=== PATIENT | female | born 1960 | race Caucasian/White ===

== ENCOUNTER 2019-05-11 05:58 | Inpatient (IN) | payer OTHER ==
[2019-04-25 10:30] VITALS: BMI 32.7
[2019-05-11] MEDS ORDERED: TRANEXAMIC ACID 1000 MG/10 ML VIAL IVPUSH ONE (06:12)
[2019-05-11] MEDS ORDERED: CEFAZOLIN 2 GM/D5W 2 GM/50 ML ML IVPB ONE (06:12)
[2019-05-11] MEDS ORDERED: BUPIVACAINE LIPOSOME/PF (EXPAREL) 266 MG/20 ML VIAL ONE (07:22)
[2019-05-11] MEDS ORDERED: SODIUM CHLORIDE 0.9% P/F 10 ML VIAL IJ ONE (07:22)
[2019-05-11] MEDS ORDERED: MIDAZOLAM HCL 2 MG/2 ML SINGLE DOSE VIAL ONE (07:22)
[2019-05-11] MEDS ORDERED: BENZOIN/ALOE VERA/STORAX/TOLU 58 ML BOTTLE ONE (07:27)
[2019-05-11] MEDS ORDERED: PROPOFOL 20 ML ONE ×3 (07:33)
[2019-05-11] MEDS ORDERED: VANCOMYCIN 1,250 MG in DEXTROSE 5%-WATER - 250 ML IVPB ONE (08:00)
--- NOTE | 2019-05-11 09:52 | PN ---
Progress Note (short form) - Note Progress Note: 59F s/p LEFT total knee replacement POD #0. -Pain control: per anaesthesia team. -DVT PPx: -Chemical: ASA 81mg PO BID x 6 weeks. -Mechanical: ZIA's, SCD's. -Incentive spirometry q15 min. -PT/OT/Rehab, OOB. -WBAT LLE. -Post-op Ancef x 3 doses. -f/u post-op TOV: 8 hours max. -f/u AM labs. -Diet as tolerated. -Care per medical hospitalist team. -Discharge planning: f/u [facility] [place] Office 7-10 days; call for appointment . -Will follow. Mehrdad Martino MD (Orthopaedic Surgery).
[2019-05-11] MEDS ORDERED: MAGNESIUM HYDROX 2400MG/30ML ORAL SUSPENSION 30 ML CUP PO PRN (09:55)
[2019-05-11] MEDS ORDERED: MAG HYDROX/AL HYDROX/SIMETH 30 ML UNIT-DOSE CUP PO PRN (09:55)
--- NOTE | 2019-05-11 09:55 | OP ---
Operative Note - Note: Operative Date: 05/11/19 Pre-Operative Diagnosis: Left knee DJD Operation: Left TKA Findings: Tricompartment DJD Tourniqet Pressure: 350mmHg Tourniquet Time: 75 minutes Implants: [place] [employer]. Femur - 2. Tibia - 2. Poly - 9mm, PS. Patella - 27mm, symmetric Post-Operative Diagnosis: Same as Pre-op Surgeon: Mehrdad Martion Roustabout Pusher: Manjeet Martino Anesthesiologist/DOCUMENT IMPROVEMENT SPECIALIST: [place] Anesthesia: Spinal Specimens Removed: Bone, soft tissue Estimated Blood Loss (mls): 0 Fluid Volume Replaced (mls): 1,300 (Crystalloid) Operative Report Dictated: Yes
[2019-05-11] MEDS ORDERED: ASPIRIN 325 MG TABLET PO SCH (10:00)
[2019-05-11] MEDS ORDERED: LACTATED RINGERS SOLUTION 1,000 ML IV SCH (10:00)
[2019-05-11] MEDS ORDERED: oxyCODONE HCL 5 MG TABLET PO PRN (10:54)
[2019-05-11] MEDS ORDERED: ONDANSETRON 4 MG/2 ML VIAL IVPUSH PRN (10:54)
[2019-05-11] MEDS ORDERED: PROMETHAZINE HCL 25 MG/1 ML VIAL IVPUSH PRN (10:54)
[2019-05-11] MEDS ORDERED: ACETAMINOPHEN 325 MG TABLET (FP) PO SCH (11:00)
[2019-05-11] MEDS ORDERED: ACETAMINOPHEN 325 MG TABLET (FP) ONE (11:24)
--- NOTE | 2019-05-11 11:52 | HP ---
Documentation entered by Gertrude Dudley SCRIBE, acting as scribe for Neda Riddle NP. CHIEF COMPLAINT: Left knee pain HISTORY OF PRESENT ILLNESS: 59 year-old female with a PMH significant for HTN, Type II NIDDM, and left knee DJD s/p left total knee arthroplasty today with Dr. Mehrdad Martino. Recent Travel: No PAST MEDICAL HISTORY: Hypertension Type II NIDDM Osteoarthritis Benign breast disease Reinopathy Eczema PAST SURGICAL HISTORY: x 1 Right knee arthroscopy Bilateral bunionectomy Social History: Smoking: never Alcohol: social Drugs: no Allergies tramadol Adverse Reaction (Severe, Verified 05/11/19 06:29) Vomiting HOME MEDICATIONS: Home Medications Medication Instructions Recorded Ascorbic Acid [Vitamin C] 2,000 mg PO DAILY 04/25/19 Cholecalciferol (Vitamin D3) 2,000 unit PO DAILY 04/25/19 [Vitamin D3] Hydrocodone/Ibuprofen 1 each PO DAILY 04/25/19 [Hydrocodone-Ibuprofen 7.5-200] Ibuprofen 600 mg PO PRN PRN 04/25/19 Lidocaine 5% Patch [Lidoderm Patch 1 patch TP HS 04/25/19 -] Metformin HCl [Glucophage] 500 mg PO DAILY 04/25/19 Valsartan/Hydrochlorothiazide 1 each PO DAILY 04/25/19 [Valsartan-Hctz 80-12.5 mg Tab] Acetaminophen [Tylenol] 650 mg PO ASDIR 05/11/19 REVIEW OF SYSTEMS CONSTITUTIONAL: Absent: fever, chills, diaphoresis, generalized weakness, malaise, loss of appetite, weight change HEENT: Absent: rhinorrhea, nasal congestion, throat pain, throat swelling, difficulty swallowing, mouth swelling, ear pain, eye pain, visual changes CARDIOVASCULAR: Absent: chest pain, syncope, palpitations, irregular heart rate, lightheadedness , peripheral edema RESPIRATORY: Absent: cough, shortness of breath, dyspnea with exertion, orthopnea, wheezing, stridor, hemoptysis GASTROINTESTINAL: Absent: abdominal pain, abdominal distension, nausea, vomiting, diarrhea, constipation, melena, hematochezia GENITOURINARY: Absent: dysuria, frequency, urgency, hesitancy, hematuria, flank pain, genital pain MUSCULOSKELETAL: +left knee pain Absent: myalgia, arthralgia, joint swelling, back pain, neck pain SKIN: Absent: rash, itching, pallor HEMATOLOGIC/IMMUNOLOGIC: Absent: easy bleeding, easy bruising, lymphadenopathy, frequent infections ENDOCRINE: Absent: unexplained weight gain, unexplained weight loss, heat intolerance, cold intolerance NEUROLOGIC: Absent: headache, focal weakness or paresthesias, dizziness, unsteady gait, seizure, mental status changes, bladder or bowel incontinence PSYCHIATRIC: Absent: anxiety, depression, suicidal or homicidal ideation, hallucinations. PHYSICAL EXAMINATION Vital Signs - 24 hr 05/11/19 06:33 Temperature 98.6 F Pulse Rate 88 Respiratory 18 Rate Blood Pressure 146/90 GENERAL: Awake, alert, and fully oriented, in no acute distress. HEAD: Normal with no signs of trauma. EYES: Pupils equal, round and reactive to light, extraocular movements intact, sclera anicteric, conjunctiva clear. LUNGS: Breath sounds equal, clear to auscultation bilaterally. No wheezes, and no crackles. No accessory muscle use. HEART: Regular rate and rhythm, normal S1 and S2 ABDOMEN: Soft, nontender, not distended MUSCULOSKELETAL: Normal range of motion at all joints. No bony deformities or tenderness. No CVA tenderness. UPPER EXTREMITIES: 2+ pulses, warm, well-perfused. No cyanosis. No clubbing. No peripheral edema. LOWER EXTREMITIES: 2+ pulses, warm, well-perfused. No calf tenderness. Surgical dressing c/d/i. Ice leeanne. Hemovac drain. NEUROLOGICAL: Cranial nerves II-XII intact. Normal speech. Laboratory Results - last 24 hr 05/11/19 06:48 POC Glucometer 129 Pre op Hgb 12.6 BUN 21 Cr 0.78 Intra op Cefazolin 3g Vanc 1g EBL 10cc LR 1600cc ASSESSMENT/PLAN: 59 year-old female with a PMH significant for HTN, Type II NIDDM, and left knee DJD s/p left total knee arthroplasty today with Dr. Mehrdad Martino. Left total knee arthroplasty --POD #0 --perioperative antibiotics per surgery --pain management per surgery --ASA 81mg BID --protonix --bowel regimen --incentive spirometry --Hemovac drain, monitor output Type II NIDDM --continue metformin --Novolog sliding scale coverage FEN Fluids: LR@125mL/hr Electrolytes: replete as indicated Nutrition: diabetic diet DVT prophylaxis: OOB, ambulation, SCDs, TEDs, ASA 81mg BID Physical therapy Dispo: continues to require inpatient care. Full code. Visit type - Emergency Visit Emergency Visit: No - New Patient This patient is new to me today: Yes Date on this admission: 05/11/19 - Critical Care Critical Care patient: No Neda Riddle NP: This documentation has been prepared by the Luis Enrique browning Maria, SCRIBE, under my direction and personally reviewed by me in its entirety. I confirm that the documentation accurately reflects all work, treatment, procedures, and medical decision making performed by me.
[2019-05-11] MEDS: oxyCODONE HCL 5 MG TABLET PO PRN ×3 (14:26→22:37)
[2019-05-11] MEDS: VALSARTAN 80 MG TABLET (UD) PO SCH (15:37)
[2019-05-11] MEDS: PANTOPRAZOLE 40 MG TABLET PO SCH (15:37)
[2019-05-11] MEDS: metFORMIN HCL 500 MG TABLET (FP) PO SCH (15:37)
[2019-05-11] MEDS: SENNOSIDES/DOCUSATE COMBO (SENNA PLUS) TABLET (UD) PO SCH ×2 (15:38→21:57)
[2019-05-11] MEDS ORDERED: HYDROmorphone HCl 2 MG/ML VIAL IVPUSH ONE (15:44)
[2019-05-11] MEDS: CEFAZOLIN 2 GM/D5W 2 GM/50 ML ML IVPB SCH ×2 (15:56→21:58)
[2019-05-11] MEDS: INSULIN SLIDING SCALE (NOVOLOG) 1 VIAL SQ SCH ×2 (17:00→22:01)
--- NOTE | 2019-05-11 17:00 | OP ---
DATE OF OPERATION: DATE OF DICTATION: 05/11/2019 SURGEON: Mehrdad Martino MD LIFELINE REPRESENTATIVES: Manjeet Martino MD, MEKA Barker PREOPERATIVE DIAGNOSIS: Tricompartmental osteoarthritis with fixed valgus deformity, left knee. POSTOPERATIVE DIAGNOSIS: Tricompartmental osteoarthritis with fixed valgus deformity, left knee. OPERATION PERFORMED: Left posterior stabilized total knee arthroplasty ([place] ). ([id number]) ANESTHESIA: Conscious sedation with spinal anesthesia and peripheral nerve block. ANTIBIOTICS GIVEN: 2 g Ancef, 1 g vancomycin preoperative; 1 g Kefzol given at the time of release of tourniquet. TOURNIQUET TIME: 80 minutes. OPERATION DETAILS: Patient correctly identified, brought in the operating room. Left lower extremity was prepped, draped in the routine manner with Betadine scrub solution, wiped off with alcohol, DuraPrep applied. The appropriate preoperative evaluation revealed a fixed valgus knee with no fixed flexion deformity. A midline incision was utilized of the routine draping and free draping of the left lower extremity. The skin was opened through the subcutaneous tissue to the quadriceps mechanism. The epimysium of the vastus medialis was dissected off the muscle. The dissection distally was from just medial proximal aspect of the tibia. Using a Bovie, the soft tissue was dissected off the bone. This was all the way around to the medial side of the knee. The patella was capsized laterally. Because of the bulkiness of the patella, we elected to resect the retropatellar surface 1st. Two sharp clamps placed in the quadriceps tendon and patella ligament. The patella was everted and the cut made from patella ligament to quadriceps tendon. The lug holes were drilled appropriately. The knee was then flexed. The limb kept in external rotation gave complete exposure of the knee with no difficulty. Severe tricompartment, particularly lateral compartment, osteoarthritis encountered. Using the [employer] instrumentation, the tibia was cut to neutral. The femur was cut to 4 degrees of valgus, and 8 mm of bone was resected off the distal aspect of the femur. The appropriate alignment jigs were utilized, and all the block cuts were made using the jig system and the appropriate chamfers made to accept a size 2 femoral component, size 3 tibial component. All appropriate lug holes and bone broaches and appropriate deep tibial drill made accordingly. This was a 13 mm extension onto the tibial component. Trialing brought the knee into full extension. With a 9-mm polyethylene liner, the flexion, extension gaps were measured and found to be 9 mm both in flexion, extension. On the table, the trialing brought about a full extension and full flexion knee. Because the tibia was inclined to sublux laterally, the popliteus was resected. No soft tissue release was necessary in terms of pie crusting of the lateral collateral ligament or release of the iliotibial band necessary. Once we were happy with the trial components, the knee was flexed and Almazan elevator placed in the space between the femur and the tibia. This brought about revealing the presence of a tight joint accordingly. The wounds were thoroughly lavaged. The cementing of the implants was performed in 1 stage, that is tibia, femur, and then patella. All extraneous cement was removed. The cement was cured appropriately with a 9-mm polyethylene spacer in situ. On the trialing, this was found to be most adequate with full extension of the knee and complete stability of the coronal sagittal plane. The sagittal plane was 90 degrees. The definitive posterior stabilized polyethylene inserted. Closure medial parapatellar incision with No. 1 Vicryl. The vastus did not require any suturing. The rest of the closure was fascia 1 Vicryl, subcutaneous 1 and 2-0 Vicryl, skin 3-0 Monocryl with Steri-Strips. The drainage, 1/8-inch Hemovac brought out laterally. Operation went extremely well. No complications. MD BRANDIE Wang/[id number] MTDD
[2019-05-11] MEDS ORDERED: INSULIN (NOVOLOG) ASPART 100 UNITS/ML 10ML VIAL ONE (17:33)
[2019-05-11] MEDS: ACETAMINOPHEN 325 MG TABLET (FP) PO SCH ×2 (17:34→23:32)
[2019-05-11] MEDS: ONDANSETRON 4 MG/2 ML VIAL IVPUSH PRN (17:35)
[2019-05-11 18:39] LABS: HEMATOCRIT 35.9 % (32.4-45.2); HEMOGLOBIN 11.5 GM/dl (10.7-15.3); MCH 26.1 pg (25.7-33.7); MEAN CELL VOLUME 81.6 fl (80-96); MEAN PLT VOLUME 10.1 fl (7.5-11.1); PLATELET COUNT 207 K/MM3 (134-434); RDW 13.8 % (11.6-15.6); WHITE BLOOD COUNT 14.9 K/mm3 (4.0-10.8)
[2019-05-11] MEDS ORDERED: ASPIRIN 81 MG CHEWABLE TABLETS PO SCH (21:22)
[2019-05-11] MEDS: ASPIRIN 81 MG CHEWABLE TABLETS PO SCH (21:58)
[2019-05-11] MEDS ORDERED: oxyCODONE HCL 10 MG SUSTAINED ACTING TABLET PO SCH (22:00)
[2019-05-12] MEDS: oxyCODONE HCL 5 MG TABLET PO PRN ×7 (01:37→22:24)
[2019-05-12] MEDS: CEFAZOLIN 2 GM/D5W 2 GM/50 ML ML IVPB SCH ×2 (04:31→09:07)
[2019-05-12] MEDS ORDERED: INSULIN (NOVOLOG) ASPART 100 UNITS/ML 10ML VIAL ONE ×2 (05:54→21:28)
[2019-05-12] MEDS: ACETAMINOPHEN 325 MG TABLET (FP) PO SCH ×3 (06:03→17:45)
[2019-05-12] MEDS: metFORMIN HCL 500 MG TABLET (FP) PO SCH (06:03)
[2019-05-12] MEDS: INSULIN SLIDING SCALE (NOVOLOG) 1 VIAL SQ SCH ×4 (06:04→21:28)
[2019-05-12] MEDS: ONDANSETRON 4 MG/2 ML VIAL IVPUSH PRN (06:04)
--- NOTE | 2019-05-12 07:39 | PN ---
Progress Note (short form) - Note Progress Note: Post op day#1.S/p LTKR under spinal anesthesia with L adductor canal and slective tibial N block uneventful.Patient stable and c/o pain score of 6-8/10 for which she is on medication.No any anesthesia related problem.Patient DC from the anesthesia care.
[2019-05-12 07:55] LABS: HEMATOCRIT 33.3 % (32.4-45.2); HEMOGLOBIN 10.9 GM/dl (10.7-15.3); MCH 26.7 pg (25.7-33.7); MCHC 32.7 g/dl (32.0-36.0); MEAN CELL VOLUME 81.7 fl (80-96); MEAN PLT VOLUME 9.7 fl (7.5-11.1); PLATELET COUNT 207 K/MM3 (134-434); RBC 4.07 M/mm3 (3.60-5.2); RDW 13.5 % (11.6-15.6); WHITE BLOOD COUNT 12.3 K/mm3 (4.0-10.8)
--- NOTE | 2019-05-12 08:00 | PN ---
Progress Note (short form) - Note Progress Note: ORTHOPAEDIC SURGERY POD #1 s/p Left TKR No acute events since surgery per RN notes. Alert. Sitting in chair at bedside with rolled towel under her heels. C/o incisional tenderness. Adequate pain control with medications ordered. Still having a slight bit of nausea but subsiding with antiemetic. Denies CP, palpitations, SOB or KRISHNA. Last Vital Signs Temp Pulse Resp BP Pulse Ox 98.2 F 96 H 18 130/78 97 05/12/19 05:00 05/12/19 05:00 05/12/19 05:00 05/12/19 05:00 05/12/19 05:00 Output 05/11/19 05/11/19 05/12/19 18:11 22:45 06:00 Hemovac 90 20 20 Gen: nad LLE: ice pack in place. Drain on self-suction (sanguinous). dressing c/d/i. SCDs bilat. Soft. NT. Motor: flexion to 90 degrees. Strength 5/5 Problem List - Problems (1) Status post total left knee replacement using cement Assessment/Plan: POD #1 Cont pain management DVT PPx: ASA 81 mg PO BID x 6 weeks; TEDs/SCDs Incentive Spirometer PT WBAT LLE Monitor/record drain output q shift f/u Labs DC planning 05/13/19 Problems reviewed: Yes Code(s): Z96.652 - PRESENCE OF LEFT ARTIFICIAL KNEE JOINT
[2019-05-12 08:02] LABS: CALCIUM 8.7 mg/dl (8.5-10); CREATININE 0.6 mg/dl (0.55-1.3); MAGNESIUM 1.6 mg/dL (1.8-2.4); POTASSIUM 3.6 mmol/L (3.5-5.1)
[2019-05-12] MEDS: PANTOPRAZOLE 40 MG TABLET PO SCH (09:08)
[2019-05-12] MEDS: VALSARTAN 80 MG TABLET (UD) PO SCH (09:08)
[2019-05-12] MEDS: SENNOSIDES/DOCUSATE COMBO (SENNA PLUS) TABLET (UD) PO SCH ×2 (09:08→21:22)
[2019-05-12] MEDS: ASPIRIN 81 MG CHEWABLE TABLETS PO SCH ×2 (09:08→21:22)
[2019-05-12] MEDS ORDERED: MAGNESIUM SULF 50% (8.12 MEQ/2 ML-1 GM VIAL) IVPB ONE (10:32)
[2019-05-12] MEDS ORDERED: MAGNESIUM SULFATE IN WATER 2 GM/50 ML IVPB IVPB ONE (11:00)
--- NOTE | 2019-05-12 11:02 | PN ---
Documentation entered by Gertrude Dudley SCRIBE, acting as scribe for Neda Riddle NP. Physical Exam: SUBJECTIVE: Patient seen and examined at bedside. Worked with PT today. OBJECTIVE: Vital Signs Period Temp Pulse Resp BP Sys/Jerome Pulse Ox Last 24 Hr 97.6 F-98.2 F 60-112 10-18 97-152/61-89 97-100 GENERAL: Awake, alert, and fully oriented, in no acute distress. HEAD: Normal with no signs of trauma. EYES: Pupils equal, round and reactive to light, extraocular movements intact, sclera anicteric, conjunctiva clear. LUNGS: Breath sounds equal, clear to auscultation bilaterally. No wheezes, and no crackles. No accessory muscle use. HEART: Regular rate and rhythm, normal S1 and S2 ABDOMEN: Soft, nontender, not distended MUSCULOSKELETAL: Normal range of motion at all joints. No bony deformities or tenderness. No CVA tenderness. UPPER EXTREMITIES: 2+ pulses, warm, well-perfused. No cyanosis. No clubbing. No peripheral edema. LOWER EXTREMITIES: 2+ pulses, warm, well-perfused. No calf tenderness. Surgical dressing c/d/i. Ice leeanne. Hemovac drain. NEUROLOGICAL: Cranial nerves II-XII intact. Normal speech. Laboratory Results - last 24 hr 05/11/19 05/11/19 05/11/19 17:04 18:15 21:59 WBC 14.9 H RBC 4.40 Hgb 11.5 Hct 35.9 MCV 81.6 MCH 26.1 MCHC 32.0 RDW 13.8 Plt Count 207 MPV 10.1 Sodium Potassium Chloride Carbon Dioxide Anion Gap BUN Creatinine Est GFR (CKD-EPI)AfAm Est GFR (CKD-EPI)NonAf POC Glucometer 178 159 Random Glucose Calcium Magnesium 05/12/19 05/12/19 05/12/19 06:01 07:05 07:05 WBC 12.3 H RBC 4.07 Hgb 10.9 Hct 33.3 MCV 81.7 MCH 26.7 MCHC 32.7 RDW 13.5 Plt Count 207 MPV 9.7 Sodium 134 L Potassium 3.6 Chloride 99 Carbon Dioxide 28 Anion Gap 7 L BUN 14.0 Creatinine 0.6 Est GFR (CKD-EPI)AfAm 114.02 Est GFR (CKD-EPI)NonAf 98.38 POC Glucometer 164 Random Glucose 151 H Calcium 8.7 Magnesium 1.6 L Active Medications Generic Name Dose Route Start Last Admin Trade Name Freq PRN Reason Stop Dose Admin Acetaminophen 650 mg 05/11/19 18:00 05/12/19 06:03 Tylenol - PO 05/14/19 17:59 650 mg Q6H KYRIE Administration Al Hydroxide/Mg Hydroxide 30 ml 05/11/19 09:55 Mylanta Oral Suspension - PO Q4H PRN DYSPEPSIA Aspirin 81 mg 05/11/19 22:00 05/11/19 21:58 Asa - PO 81 mg BID KYRIE Administration Cefazolin Sodium/Dextrose 2 gm in 50 mls @ 200 mls/hr 05/11/19 16:00 04:31 Ancef 2 Gm Premixed Ivpb - IVPB 05/12/19 15:59 200 mls/hr Q6H KYRIE Administration Insulin Aspart 1 vial 05/11/19 16:30 05/12/19 06:04 Novolog Vial Sliding Scale - SQ 2 units ACHS KYRIE Administration Protocol Magnesium Hydroxide 30 ml 05/11/19 09:55 Milk Of Magnesia - PO PRN PRN CONSTIPATION Metformin HCl 500 mg 05/11/19 10:15 05/12/19 06:03 Glucophage - PO 500 mg DAILY@0700 KYRIE Administration Ondansetron HCl 4 mg 05/11/19 09:55 05/12/19 06:04 Zofran Injection IVPUSH 4 mg Q6H PRN Administration NAUSEA Oxycodone HCl 5 mg 05/11/19 10:54 Roxicodone - PO Q3H PRN PAIN LEVEL 1-5 Oxycodone HCl 10 mg 05/11/19 10:54 05/12/19 07:52 Roxicodone - PO 10 mg Q3H PRN Administration PAIN LEVEL 6-10 Pantoprazole Sodium 40 mg 05/11/19 10:00 05/11/19 15:37 Protonix - PO Not Given DAILY [facility] Senna/Docusate Sodium 2 tablet 05/11/19 10:00 05/11/19 21:57 Pericolace - PO 2 tablet BID KYRIE Administration Valsartan 80 mg 05/11/19 10:15 05/11/19 15:37 Diovan - PO Not Given DAILY [facility] ASSESSMENT/PLAN: 59 year-old female with a PMH significant for HTN, Type II NIDDM, and left knee DJD s/p left total knee arthroplasty today with Dr. Mehrdad Martino. Left total knee arthroplasty --POD #1 --perioperative antibiotics complete --pain well-managed with PO meds --ASA 81mg BID --protonix --bowel regimen --incentive spirometry Type II NIDDM --continue metformin --Novolog sliding scale coverage FEN Fluids: PO intake adequate Electrolytes: replete as indicated Nutrition: diabetic diet DVT prophylaxis: OOB, ambulation, SCDs, TEDs, ASA 81mg BID Physical therapy Dispo: continues to require inpatient care. Full code. Visit type - Emergency Visit Emergency Visit: No - New Patient This patient is new to me today: No - Critical Care Critical Care patient: No Neda Riddle NP: This documentation has been prepared by the Luis Enrique browning Maria, SCRIBE, under my direction and personally reviewed by me in its entirety. I confirm that the documentation accurately reflects all work, treatment, procedures, and medical decision making performed by me.
[2019-05-13] MEDS: ACETAMINOPHEN 325 MG TABLET (FP) PO SCH ×3 (00:12→12:16)
[2019-05-13] MEDS: metFORMIN HCL 500 MG TABLET (FP) PO SCH (06:34)
[2019-05-13] MEDS: INSULIN SLIDING SCALE (NOVOLOG) 1 VIAL SQ SCH (06:34)
[2019-05-13] MEDS ORDERED: INSULIN (NOVOLOG) ASPART 100 UNITS/ML 10ML VIAL ONE (06:38)
--- NOTE | 2019-05-13 07:06 | PN ---
Progress Note (short form) - Note Progress Note: ORTHOPAEDIC SURGERY POD #2 s/p Left TKR No acute events since surgery per RN notes. Alert. Sitting in chair at bedside with rolled towel under her heels. PT notes reviewed and progressing as expected. C/o incisional tenderness. Adequate pain control with medications ordered. This morning, patient with temp of 100.2F and tachy at 113. States she is using her incentive spirometer as directed. Denies CP, palpitations, SOB, KRISHNA, hematuria, dysuria or frequency Last Vital Signs Temp Pulse Resp BP Pulse Ox 100.2 F H 113 H 18 124/61 93 L 05/13/19 06:00 05/13/19 06:00 05/13/19 06:00 05/13/19 06:00 05/13/19 06:00 PE Gen: nad LLE: ice pack in place. Drain dc'd on rounds. New dressing applied. SCDs bilat. Soft. No edema/swelling. Motor: Knee flexion to 90 degrees. Dorsi/plantar flex/ext intact. Strength 5/5. Problem List - Problems (1) Status post total left knee replacement using cement Assessment/Plan: POD #2 s/p Left TKR. Mobilizing with PT (notes reviewed). This morning, patient had fever 100.3F. Tachycardic to 113. Non-toxic appearing. Asymptomatic. Cont pain management DVT PPx: ASA 81 mg PO BID x 6 weeks; TEDs/SCDs Pulmonary toileting Incentive Spirometer PT WBAT LLE Drain dc'd on rounds f/u CXR f/u UA Above plan discussed with Dr. Manjeet Martino and agrees. Code(s): Z96.652 - PRESENCE OF LEFT ARTIFICIAL KNEE JOINT
[2019-05-13 07:57] LABS: HEMATOCRIT 29.6 % (32.4-45.2); HEMOGLOBIN 9.7 GM/dl (10.7-15.3); MCH 26.7 pg (25.7-33.7); MCHC 32.7 g/dl (32.0-36.0); MEAN CELL VOLUME 81.7 fl (80-96); MEAN PLT VOLUME 10.6 fl (7.5-11.1); PLATELET COUNT 173 K/MM3 (134-434); RBC 3.62 M/mm3 (3.60-5.2); RDW 13.3 % (11.6-15.6); WHITE BLOOD COUNT 10.6 K/mm3 (4.0-10.8)
[2019-05-13] MEDS: VALSARTAN 80 MG TABLET (UD) PO SCH (10:12)
[2019-05-13] MEDS: ASPIRIN 81 MG CHEWABLE TABLETS PO SCH (10:12)
[2019-05-13] MEDS: PANTOPRAZOLE 40 MG TABLET PO SCH (10:12)
[2019-05-13] MEDS: SENNOSIDES/DOCUSATE COMBO (SENNA PLUS) TABLET (UD) PO SCH (10:12)
[2019-05-13 10:52] VITALS: BP 115/59
--- NOTE | 2019-05-13 11:21 | PATH ---
Surgical Pathology Report Patient Name: JOSE LINK Med. Rec. #: [id number] /Age/Gender: 1960 (Age: 59) / F Account: [id number] Location: [facility] Taken: 05/11/2019 Received: 05/11/2019 Reported: 05/13/2019 Physicians: Mehrdad Martino M.D. Specimen(s) Received BONES LEFT KNEE Clinical History Osteoarthritis left knee Final Diagnosis BONE AND SOFT TISSUE, LEFT KNEE, REPLACEMENT: DEGENERATIVE JOINT DISEASE. Electronically Signed Noman Velasquez M.D. Gross Description Received in formalin labeled "bones left knee," is a 10.0 x 9.0 x 1.8 cm aggregate of multiple portions of bone and soft tissue. The tibial plateau measures 7.3 x 4.8 x 1.8 cm. There is a 2.3 cm in greatest dimension area of eburnation present. The remaining articular surfaces are ash-yellow and focally granular. The underlying trabecular bone is yellow and hard. Mental Measurements Teacher sections are submitted in one cassette, following decalcification. /05/12/2019 [facility]05/12/2019
[2019-05-13 11:44] LABS: EPITHELIAL CELLS FEW /hpf
[2019-05-13 12:06] VITALS: TEMP 99.8
[2019-05-13 12:07] VITALS: PULSE 90
--- NOTE | 2019-05-13 13:56 | DS ---
"Documentation entered by Gertrude Dudley SCRIBE, acting as scribe for Neda Riddle NP. Physical Exam: SUBJECTIVE: Patient seen and examined OBJECTIVE: Vital Signs Period Temp Pulse Resp BP Sys/Jerome Pulse Ox Last 24 Hr 98 F-100.2 F 96-113 18-18 115-148/61-90 93-100 PHYSICAL EXAM GENERAL: The patient is awake, alert, and fully oriented, in no acute distress. ENT: Ears normal, nares patent, oropharynx clear without exudates, moist mucous membranes. LUNGS: Breath sounds equal, clear to auscultation bilaterally, no wheezes, no crackles, no accessory muscle use. HEART: Regular rate and rhythm, S1, S2 without murmur, rub or gallop. ABDOMEN: Soft, nontender, nondistended, normoactive bowel sounds, no guarding, no rebound, no hepatosplenomegaly, no masses. EXTREMITIES: 2+ pulses, warm, well-perfused, no edema. NEUROLOGICAL: Cranial nerves II through XII grossly intact. Normal speech, gait not observed. PSYCH: Normal mood, normal affect. SKIN: Warm, dry, normal turgor, no rashes or lesions noted. LABS Laboratory Results - last 24 hr 05/12/19 05/12/19 05/12/19 07:05 07:05 10:59 WBC 12.3 H RBC 4.07 Hgb 10.9 Hct 33.3 MCV 81.7 MCH 26.7 MCHC 32.7 RDW 13.5 Plt Count 207 MPV 9.7 Sodium 134 L Potassium 3.6 Chloride 99 Carbon Dioxide 28 Anion Gap 7 L BUN 14.0 Creatinine 0.6 Est GFR (CKD-EPI)AfAm 114.02 Est GFR (CKD-EPI)NonAf 98.38 POC Glucometer 136 Random Glucose 151 H Calcium 8.7 Magnesium 1.6 L 05/12/19 05/13/19 21:26 06:17 WBC RBC Hgb Hct MCV MCH MCHC RDW Plt Count MPV Sodium Potassium Chloride Carbon Dioxide Anion Gap BUN Creatinine Est GFR (CKD-EPI)AfAm Est GFR (CKD-EPI)NonAf POC Glucometer 165 154 Random Glucose Calcium Magnesium Date of Admission:05/11/19 Date of Discharge: 05/13/19 Hospital Course 59 year-old female with a PMH significant for HTN, Type II NIDDM, and left knee DJD s/p left total knee arthroplasty today with Dr. Mehrdad Martino. Left total knee arthroplasty --perioperative antibiotics complete --pain well-managed with PO meds at time of discharge --ASA 81mg BID Minutes to complete discharge: 35 Discharge Summary Problems reviewed: Yes Reason For Visit: TRANSIENT SYNOVITIS, LEFT KNEE Current Active Problems Status post total left knee replacement using cement (Acute) Condition: Improved - Instructions Diet, Activity, Other Instructions: Dr. Martino Discharge Instructions for Knee Replacement Post Operative Instructions Physical activity Physical Therapist will come to your home for the first 5 days. You will be set up with outpatient PT at your first post-operative visit. Use assistive devices for ambulation at all times. Weight bearing as tolerated on your surgical side. Do not put pillow under knee. May put pillow under heel. Wound care Leave your surgical dressing in place. Do not change the dressing until seen by your surgeon in the office. No baths or showers. Do not submerge your incision. Do not apply any ointments or lotions to your incision. Please call the office if your dressing is soiled/dirty or is falling off. Apply Graduated Compression Stockings (TEDS) to both lower extremities - remove daily for hygiene ONLY. Diet There are no dietary restrictions. Eat healthy, high-fiber foods. Drink 6 to 8 glasses of liquid each day. This will assist in keeping your bowels are regular. Pain management Any pain prescription medication ordered should be taken as prescribed for moderate to severe pain. Do not take additional Tylenol while taking Percocet. Take Aspirin 81 mg two times a day for a total of 6 weeks to prevent blood clots. Call Dr. Martino for any of the following: Severe pain not relieved by medication Fever of 101 or higher Excessive bleeding or drainage on dressing Inability to urinate If you experience chest pain or shortness of breath, please seek emergency care immediately. Please call the office at to confirm your post-op appointment for the week following surgery. [facility]: This report was requested by: Pascual Noyola | Reference #: [id number] Referrals: Manjeet Martino MD [Staff Physician] - Disposition: HOME - Home Medications Comprehensive Discharge Medication List: Ambulatory Orders Ascorbic Acid [Vitamin C] 2,000 mg PO DAILY 04/25/19 Cholecalciferol (Vitamin D3) [Vitamin D3] 2,000 unit PO DAILY 04/25/19 Hydrocodone/Ibuprofen [Hydrocodone-Ibuprofen 7.5-200] 1 each PO DAILY 04/25/19 Ibuprofen 600 mg PO PRN PRN 04/25/19 Lidocaine 5% Patch [Lidoderm Patch -] 1 patch TP HS 04/25/19 Metformin HCl [Glucophage] 500 mg PO DAILY 04/25/19 Valsartan/Hydrochlorothiazide [Valsartan-Hctz 80-12.5 mg Tab] 1 each PO DAILY Acetaminophen [Tylenol] 650 mg PO ASDIR 05/11/19 Prescription Drug Monitoring Program (I-STOP) results: I-STOP not reviewed This patient is new to me today: No Emergency Visit: No Critical Care patient: No - Discharge Referral Referred to [facility] Neda Lockwood, [employer]ER: This documentation has been prepared by the Luis Enrique browning Maria, SCRIBE, under my direction and personally reviewed by me in its entirety. I confirm that the documentation accurately reflects all work, treatment, procedures, and medical decision making performed by me."
== END 2019-05-13 14:11 | disposition home or self-care (01) | DRG 470 ==
LOC: FM/S 05:58
PROVIDERS: ADMIT Internal Medicine; ATTEND Nurse Practitioner Acute Care
PROC: 0SRD0J9 Replacement of Left Knee Joint with Synthetic Substitute, Cemented, Open Approach (ICD-10-PCS; principal; 2019-05-11 08:46)
DX: M17.12 Unilateral primary osteoarthritis, left knee (principal); M21.062 Valgus deformity, not elsewhere classified, left knee; I10 Essential (primary) hypertension; E11.9 Type 2 diabetes mellitus without complications
CPT/HCPCS: 36415; 71045-TC-FY; 73560-TC-LT-FY; 80048; 81003; 81015; 82962; 83735; 85027; 88304-TC; 88311-TC; 94760; 97116-GP; 97163-GP

== ENCOUNTER 2020-03-14 06:04 | Inpatient (IN) | payer OTHER ==
[2020-03-07 15:11] VITALS: BMI 34.0
[2020-03-14] MEDS ORDERED: CEFAZOLIN 2 GM in DEXTROSE 5%-WATER - 50 ML IVPB ONE (06:29)
[2020-03-14] MEDS ORDERED: CELECOXIB 200 MG CAPSULE PO ONE (06:29)
[2020-03-14] MEDS ORDERED: LOCK ITEM NR ONE (06:42)
[2020-03-14] MEDS ORDERED: BUPIVACAINE LIPOSOME/PF (EXPAREL) 266 MG/20 ML VIAL ONE (06:59)
[2020-03-14] MEDS ORDERED: MIDAZOLAM HCL 2 MG/2 ML SINGLE DOSE VIAL ONE ×2 (06:59→07:07)
[2020-03-14] MEDS ORDERED: SODIUM CHLORIDE 0.9% P/F 10 ML VIAL IJ ONE (06:59)
[2020-03-14] MEDS ORDERED: VANCOMYCIN 1,000 MG in DEXTROSE 5%-WATER - 250 ML IVPB ONE (07:00)
[2020-03-14] MEDS ORDERED: LIDOCAINE HCL/PF 2% SDV 5ML VIAL ONE ×2 (07:11→07:13)
[2020-03-14] MEDS ORDERED: DEXAMETHASONE SOD PHOSPHATE 4 MG/1 ML VIAL ONE ×2 (07:11→08:26)
[2020-03-14] MEDS ORDERED: KETOROLAC TROMETHAMINE 30 MG/1 ML VIAL ONE (07:11)
[2020-03-14] MEDS ORDERED: SUCCINYLCHOLINE CHLORIDE 200 MG/10 ML SYRINGE ONE (07:11)
[2020-03-14] MEDS ORDERED: TRANEXAMIC ACID 1000 MG/10 ML VIAL ONE (07:13)
[2020-03-14] MEDS ORDERED: BUPIVACAINE HCL/PF 0.5% (5MG/ML) 10 ML VIAL ONE (07:17)
[2020-03-14] MEDS ORDERED: ceFAZolin SODIUM 1 GM VIAL ONE (08:17)
[2020-03-14] MEDS ORDERED: PROPOFOL 20 ML ONE ×2 (08:21)
[2020-03-14] MEDS ORDERED: BENZOIN/ALOE VERA/STORAX/TOLU 58 ML BOTTLE ONE (09:36)
[2020-03-14] MEDS ORDERED: ONDANSETRON 4 MG/2 ML VIAL IVPUSH PRN ×2 (10:25→10:45)
[2020-03-14] MEDS ORDERED: MAG HYDROX/AL HYDROX/SIMETH 30 ML UNIT-DOSE CUP PO PRN (10:25)
[2020-03-14] MEDS ORDERED: MAGNESIUM HYDROX 2400MG/30ML ORAL SUSPENSION 30 ML CUP PO PRN (10:25)
[2020-03-14] MEDS ORDERED: LACTATED RINGERS SOLUTION 1,000 ML IV SCH (10:30)
[2020-03-14] MEDS ORDERED: oxyCODONE HCL 5 MG TABLET PO PRN (10:45)
[2020-03-14] MEDS: oxyCODONE HCL 5 MG TABLET PO PRN ×3 (14:24→20:17)
[2020-03-14] MEDS: CEFAZOLIN 2 GM/D5W 2 GM/50 ML ML IVPB SCH ×2 (16:30→21:39)
[2020-03-14] MEDS: INSULIN SLIDING SCALE (NOVOLOG) 1 VIAL SQ SCH ×2 (18:42→21:41)
[2020-03-14] MEDS: ASPIRIN COATED 81 MG TABLET.EC PO SCH (21:40)
[2020-03-14] MEDS: CELECOXIB 200 MG CAPSULE PO SCH (21:40)
[2020-03-14] MEDS: oxyCODONE HCL 10 MG SUSTAINED ACTING TABLET PO SCH (21:40)
[2020-03-14] MEDS: SENNOSIDES/DOCUSATE COMBO (SENNA PLUS) TABLET (UD) PO SCH (21:40)
[2020-03-15] MEDS: oxyCODONE HCL 5 MG TABLET PO PRN ×3 (01:26→19:27)
[2020-03-15] MEDS: CEFAZOLIN 2 GM/D5W 2 GM/50 ML ML IVPB SCH (03:23)
[2020-03-15] MEDS: INSULIN SLIDING SCALE (NOVOLOG) 1 VIAL SQ SCH ×4 (06:28→21:12)
[2020-03-15] MEDS ORDERED: metFORMIN HCL 500 MG TABLET (FP) PO SCH (07:00)
[2020-03-15 07:54] LABS: HEMOGLOBIN 9.4 GM/dl (10.7-15.3); MCH 26.5 pg (25.7-33.7); MCHC 32.5 g/dl (32.0-36.0); MEAN CELL VOLUME 81.5 fl (80-96); MEAN PLT VOLUME 9.7 fl (7.5-11.1); PLATELET COUNT 188 K/MM3 (134-434); RBC 3.56 M/mm3 (3.60-5.2); RDW 14.8 % (11.6-15.6); WHITE BLOOD COUNT 8.7 K/mm3 (4.0-10.8)
[2020-03-15 08:05] LABS: CALCIUM 8.8 mg/dl (8.5-10); CREATININE 0.8 mg/dl (0.55-1.3)
[2020-03-15] MEDS: LACTATED RINGERS SOLUTION 1,000 ML IV SCH ×2 (08:08→10:02)
[2020-03-15] MEDS: PANTOPRAZOLE 40 MG TABLET PO SCH (09:30)
[2020-03-15] MEDS: CELECOXIB 200 MG CAPSULE PO SCH (09:30)
[2020-03-15] MEDS: ASPIRIN COATED 81 MG TABLET.EC PO SCH ×2 (09:30→21:10)
[2020-03-15] MEDS: SENNOSIDES/DOCUSATE COMBO (SENNA PLUS) TABLET (UD) PO SCH ×2 (09:30→21:11)
[2020-03-15] MEDS: HYDROCHLOROTHIAZIDE 12.5 MG CAPSULE (FP) PO SCH (09:35)
[2020-03-15] MEDS: oxyCODONE HCL 10 MG SUSTAINED ACTING TABLET PO SCH ×2 (09:35→21:11)
[2020-03-15] MEDS ORDERED: PATIENT'S OWN MEDICATION (NON-FORMULARY) (Valsartan/Hydrochlorothiazide [Valsartan-Hctz 80 PO SCH (10:00)
[2020-03-15] MEDS ORDERED: VALSARTAN 80 MG TABLET PO SCH (10:00)
[2020-03-15] MEDS: VALSARTAN 80 MG TABLET PO SCH (10:01)
[2020-03-15] MEDS: ACETAMINOPHEN 500 MG TABLET (FP) PO SCH ×3 (10:01→21:12)
[2020-03-15] MEDS ORDERED: KETOROLAC TROMETHAMINE 30 MG/1 ML VIAL IVPUSH PRN (16:30)
[2020-03-16] MEDS: ACETAMINOPHEN 500 MG TABLET (FP) PO SCH ×2 (06:10→09:28)
[2020-03-16] MEDS: INSULIN SLIDING SCALE (NOVOLOG) 1 VIAL SQ SCH ×2 (06:11→11:40)
[2020-03-16] MEDS: oxyCODONE HCL 5 MG TABLET PO PRN (06:11)
[2020-03-16 07:44] LABS: CALCIUM 8.2 mg/dl (8.5-10); CREATININE 0.9 mg/dl (0.55-1.3); POTASSIUM 3.7 mmol/L (3.5-5.1)
[2020-03-16 07:57] LABS: HEMOGLOBIN 8.8 GM/dl (10.7-15.3); MCH 25.9 pg (25.7-33.7); MCHC 31.4 g/dl (32.0-36.0); MEAN CELL VOLUME 82.4 fl (80-96); MEAN PLT VOLUME 9.6 fl (7.5-11.1); PLATELET COUNT 175 K/MM3 (134-434); RBC 3.39 M/mm3 (3.60-5.2); WHITE BLOOD COUNT 6.6 K/mm3 (4.0-10.8)
[2020-03-16] MEDS: HYDROCHLOROTHIAZIDE 12.5 MG CAPSULE (FP) PO SCH (09:27)
[2020-03-16] MEDS: PANTOPRAZOLE 40 MG TABLET PO SCH (09:27)
[2020-03-16] MEDS: SENNOSIDES/DOCUSATE COMBO (SENNA PLUS) TABLET (UD) PO SCH (09:27)
[2020-03-16] MEDS: VALSARTAN 80 MG TABLET PO SCH (09:27)
[2020-03-16] MEDS: ASPIRIN COATED 81 MG TABLET.EC PO SCH (09:28)
[2020-03-16] MEDS: oxyCODONE HCL 10 MG SUSTAINED ACTING TABLET PO SCH (09:28)
[2020-03-16 14:02] VITALS: BP 117/66; PULSE 90; TEMP 98.5
== END 2020-03-16 16:35 | disposition home health service (06) | DRG 470 ==
LOC: FM/S 06:04
PROVIDERS: ADMIT Orthopaedic Surgery Orthopaedic Surgery of the Spine; ATTEND Orthopaedic Surgery Orthopaedic Surgery of the Spine
PROC: 0SRC0J9 Replacement of Right Knee Joint with Synthetic Substitute, Cemented, Open Approach (ICD-10-PCS; principal; 2020-03-14 08:37)
DX: M17.11 Unilateral primary osteoarthritis, right knee (principal); I10 Essential (primary) hypertension; E11.319 Type 2 diabetes mellitus with unspecified diabetic retinopathy without macular edema; N64.9 Disorder of breast, unspecified; L30.9 Dermatitis, unspecified
CPT/HCPCS: 36415; 73560-TC-RT-FY; 80048; 82962; 85027; 86850; 86900; 86901; 88304-TC; 88311-TC; 94760; 97010-GP; 97116-GP; 97162-GP